=== PATIENT | female | born 1965 | race Caucasian/White ===

== ENCOUNTER → 2020-07-16 | Outpatient (CLI) | payer BC ==
[~2020-07-16] MED LIST: Bisoprolol Fumar5 MG; OMEP20ER; Omeprazole20 M1 PO; Pepcid40 MG PO; Prednisone20 MG PO; Prinivil10 MG PO
[2020-07-16 16:36] LABS: Alanine Aminotransfer (ALT/SGP 39 U/L (12-78); Albumin, Blood 3.9 g/dL (3.4-5.0); Alk Phos 75 U/L (50-136); Anion Gap 7 mmol/L (6-16); Aspartate Aminotrans (AST/SGOT 18 U/L (12-37); Bilirubin, Total 0.4 mg/dL (0.1-1.0); Blood Urea Nitrogen 15 mg/dL (8-24); Bun/Creatinine Ratio 19.9 (12.0-20.0); CO2, Blood 29 mmol/L (21-32); Calcium, Blood 8.7 mg/dL (8.5-10.1); Chloride, Blood 105 mmol/L (98-108); Creatinine, Blood 0.75 mg/dL (0.40-1.00); Globulin, Blood 3.8 g/dL (2.2-4.0); Glomerular Filtration Rate >60 (60-); Glucose, Blood 87 mg/dL (70-99); Potassium, Blood 3.5 mmol/L (3.5-5.5); Sodium, Blood 141 mmol/L (136-145); Total Protein, Blood 7.7 g/dL (6.4-8.2)
== END ==
LOC: LAB SHORT 15:52 → LAB 15:52
PROVIDERS: Nurse Practitioner Family
DX: I10 Essential (primary) hypertension (principal)
CPT/HCPCS: 80053; 84439; 84443

== ENCOUNTER → 2020-08-12 | Outpatient (CLI) | payer BC | LOC: LAB SHORT 08:35 → PLD 08:35 | DX: R10.9 Unspecified abdominal pain (principal) | CPT/HCPCS: 87086 ==

== ENCOUNTER 2020-10-06 08:32 | Day surgery (SDC) | payer BC ==
[~2020-10-06] VITALS: Ht 160 cm; Wt 100.9 kg
[~2020-10-06 08:32] MED LIST changes: -Bisoprolol Fumar5 MG; -OMEP20ER
[2020-10-06] MEDS ORDERED: Bisoprolol Fumar5 MG (08:57)
[2020-10-06] MEDS ORDERED: OMEP20ER (08:58)
== END 2020-10-06 10:39 | disposition home or self-care (01) ==
LOC: ORSCSDS 08:32
PROVIDERS: Surgery
PROC: 0DBN8ZX Excision of Sigmoid Colon, Via Natural or Artificial Opening Endoscopic, Diagnostic (ICD-10-PCS; principal; 2020-10-06 09:45)
PROC: 0DBP8ZX Excision of Rectum, Via Natural or Artificial Opening Endoscopic, Diagnostic (ICD-10-PCS; principal; 2020-10-06 09:45)
PROC: 0DBH8ZX Excision of Cecum, Via Natural or Artificial Opening Endoscopic, Diagnostic (ICD-10-PCS; principal; 2020-10-06 09:45)
DX: Z12.11 Encounter for screening for malignant neoplasm of colon (principal); K62.1 Rectal polyp; K63.5 Polyp of colon; D12.0 Benign neoplasm of cecum; K57.30 Diverticulosis of large intestine without perforation or abscess without bleeding; I10 Essential (primary) hypertension; K21.9 Gastro-esophageal reflux disease without esophagitis; E05.90 Thyrotoxicosis, unspecified without thyrotoxic crisis or storm; E66.01 Morbid (severe) obesity due to excess calories; Z68.39 Body mass index [BMI] 39.0-39.9, adult; Z79.899 Other long term (current) drug therapy
CPT/HCPCS: 88305; J2704; J7120